=== PATIENT | female | born 1990 | race Caucasian/White ===

== ENCOUNTER → 2016-08-07 | Outpatient (CLI) | payer OTHER ==
[~2016-08-07] MED LIST: /OMEP10CA OR; ACET50TA PO; FERR325T3 PO; FLINTSTONES PO; IBUP-1114 PO; IBUP80TA PO; VITAPRTA PO
[2016-08-07 16:59] LABS: ALBUMIN 3.2 GM/DL (3.2-5.2); ALKALINE PHOSPHATASE 83 U/L (45-117); ALT/SGPT 29 U/L (12-78); ANION GAP 6 MEQ/L (8-16); AST/SGOT 18 U/L (15-37); BILIRUBIN,TOTAL 0.1 MG/DL (0.2-1.0); BLOOD UREA NITROGEN 11 MG/DL (7-18); CALCIUM LEVEL 8.4 MG/DL (8.5-10.1); CARBON DIOXIDE LEVEL 28 MEQ/L (21-32); CHLORIDE LEVEL 108 MEQ/L (98-107); CHOLESTEROL LEVEL 149 MG/DL (<200); CREATININE FOR GFR 0.68 MG/DL (0.55-1.02); GLOMERULAR FILTRATION RATE > 60.0 (>60); GLUCOSE, FASTING 86 MG/DL (70-105); MAGNESIUM LEVEL 1.9 MG/DL (1.8-2.4); POTASSIUM SERUM 4.2 MEQ/L (3.5-5.1); SODIUM LEVEL 142 MEQ/L (136-145); TOTAL PROTEIN 6.4 GM/DL (6.4-8.2); TRIGLYCERIDES LEVEL 364 MG/DL (<150)
[2016-08-07 19:02] LABS: MEAN CORPUSCULAR HEMOGLOBIN 28.1 pg (27.0-33.0); MEAN CORPUSCULAR HGB CONC 32.4 g/dl (32.0-36.5); MEAN CORPUSCULAR VOLUME 86.8 fl (80.0-96.0); RED CELL DISTRIBUTION WIDTH 14.4 % (11.5-14.5); WHITE BLOOD COUNT 7.8 K/mm3 (4.0-10.0)
== END ==
LOC: M SMT 12:57
PROVIDERS: ATTEND Nurse Practitioner Family
DX: E66.01 Morbid (severe) obesity due to excess calories (principal); R19.7 Diarrhea, unspecified; G44.89 Other headache syndrome; F41.1 Generalized anxiety disorder; Z13.220 Encounter for screening for lipoid disorders

== ENCOUNTER → 2016-08-28 | Outpatient (REF) | payer OTHER | LOC: M LAB REF 17:45 | PROVIDERS: ATTEND Advanced Practice Midwife | DX: Z12.4 Encounter for screening for malignant neoplasm of cervix (principal) ==

== ENCOUNTER 2016-10-10 10:56 | Emergency (ER) | payer OTHER ==
[~2016-10-10] VITALS: Ht 162.6 cm; Wt 106.4 kg
[2016-10-10 11:41] LABS: BASO # 0.1 K/mm3 (0.0-0.2); BASO % 0.7 % (0.0-1.0); EOS # 0.1 K/mm3 (0.0-0.50); EOS % 1.2 % (0.0-3.0); LARGE UNSTAINED CELL # 0.1 K/mm3 (0.0-0.4); LARGE UNSTAINED CELL % 1.3 % (0.0-4.0); LYMPH % 25.6 % (24.0-44.0); MEAN CORPUSCULAR HEMOGLOBIN 26.8 pg (27.0-33.0); MEAN CORPUSCULAR HGB CONC 32.2 g/dl (32.0-36.5); MEAN CORPUSCULAR VOLUME 83.4 fl (80.0-96.0); MONO # 0.4 K/mm3 (0.0-0.8); MONO % 5.5 % (0.0-5.0); NEUTROPHILS # 5.1 K/mm3 (1.8-7.7); NEUTROPHILS % 65.6 % (36.0-66.0); PLATELET COUNT, AUTOMATED 284 k/mm3 (150-450); RED CELL DISTRIBUTION WIDTH 14.8 % (11.5-14.5); WHITE BLOOD COUNT 7.7 K/mm3 (4.0-10.0)
[2016-10-10 12:09] LABS: ANION GAP 7 MEQ/L (8-16); BLOOD UREA NITROGEN 11 MG/DL (7-18); CALCIUM LEVEL 8.7 MG/DL (8.5-10.1); CARBON DIOXIDE LEVEL 26 MEQ/L (21-32); CHLORIDE LEVEL 107 MEQ/L (98-107); CREATININE FOR GFR 0.74 MG/DL (0.55-1.02); GLOMERULAR FILTRATION RATE > 60.0 (>60); GLUCOSE, FASTING 104 MG/DL (70-105); HCG, SERUM QUANTITATIVE 27 MIU/ML; POTASSIUM SERUM 4.3 MEQ/L (3.5-5.1); SODIUM LEVEL 140 MEQ/L (136-145)
--- NOTE | 2016-10-10 12:40 | REP ---
Obstetric ultrasound, first trimester for right lower quadrant abdominal pain. The patient states she thinks he has approximate 3 weeks gestational age. The study is performed with transabdominal, endovaginal and Doppler ultrasound assessment. The bladder is poorly distended. There is no identifiable intrauterine gestational sac. This is nonspecific and could represent an early intrauterine gestation not yet visible ultrasonographically, spontaneous or ectopic gestation. Follow-up is recommended. The ovaries are normal size. The right ovary measures 5.1 x 3.9 x 4.2 cm. Left ovary measures 3.2 x 2.2 x 2.4 cm. There is an involuting 1.7 cm cyst in the right ovary. There is vascular flow in both ovaries with the Doppler resistive index of the intraparenchymal arteries of the right ovary measuring 0.61 and left ovary 0.66. Impression: No identifiable intrauterine gestation. This is nonspecific and could represent early gestation not yet visible, spontaneous or ectopic gestation. Follow-up is recommended. Signed by Andrew Ellsworth MD 10/10/2016 12:31 P
[2016-10-10 13:14] VITALS: BP 146/86
== END 2016-10-10 13:27 | disposition home or self-care (01) ==
LOC: M ED 10:56
DX: R10.2 Pelvic and perineal pain (principal); F17.210 Nicotine dependence, cigarettes, uncomplicated

== ENCOUNTER → 2016-10-12 | Outpatient (CLI) | payer OTHER | LOC: M LAB 11:42 | PROVIDERS: ATTEND Emergency Medicine | DX: O20.0 Threatened abortion (principal); Z3A.00 Weeks of gestation of pregnancy not specified ==

== ENCOUNTER → 2016-10-19 | Outpatient (CLI) | payer OTHER ==
[2016-10-19 17:23] LABS: BASO % 0.5 % (0.0-1.0); EOS # 0.1 K/mm3 (0.0-0.50); EOS % 1.5 % (0.0-3.0); LARGE UNSTAINED CELL # 0.2 K/mm3 (0.0-0.4); LARGE UNSTAINED CELL % 1.9 % (0.0-4.0); LYMPH # 2.3 K/mm3 (1.5-6.5); LYMPH % 26.8 % (24.0-44.0); MEAN CORPUSCULAR HEMOGLOBIN 26.8 pg (27.0-33.0); MEAN CORPUSCULAR HGB CONC 32.2 g/dl (32.0-36.5); MONO # 0.4 K/mm3 (0.0-0.8); MONO % 5.1 % (0.0-5.0); NEUTROPHILS # 5.6 K/mm3 (1.8-7.7); NEUTROPHILS % 64.3 % (36.0-66.0); PLATELET COUNT, AUTOMATED 315 k/mm3 (150-450); RED CELL DISTRIBUTION WIDTH 15.4 % (11.5-14.5); WHITE BLOOD COUNT 8.7 K/mm3 (4.0-10.0)
[2016-10-20 11:03] LABS: HBsAg Prenatal NEGATIVE (NEGATIVE)
== END ==
LOC: M SMT 14:58
PROVIDERS: ATTEND Specialist
DX: Z34.81 Encounter for supervision of other normal pregnancy, first trimester (principal)

== ENCOUNTER → 2017-01-22 | Outpatient (CLI) | payer OTHER ==
--- NOTE | 2017-01-22 11:21 | REP ---
Clinical: Anatomical evaluation. Comparison: 10/10/2016 . Findings: Examination demonstrates a single live intrauterine in cephalic presentation. motion is identified by technologist. Placenta is noted posteriorly and grade zero without evidence for placenta previa or abruption. Amniotic fluid volume is normal. Cervix measures 4.4 cm in length and appears closed. No evidence for nuchal cord. Gestational age by LMP 18 weeks 3 days with JEANNA 06/22/2017 . Gestational age by current measurements 19 weeks 1 day with JEANNA 06/17/2017 . FHR equals 147 beats per minute. BPD 4.4 cm 19 weeks 1 day HC 15.6 cm 18 weeks 4 days AC 14.8 cm 20 weeks 1 day FL 3.0 cm 19 weeks 3 days HL 2.9 cm 19 weeks 2 days HC/AC ratio 1.06 Estimated weight 302 grams ( 96 percentile based on age by LMP ). Anatomical assessment demonstrates normal structures including cranium, choroid plexus, cavum, cerebellum/posterior fossa, facial features, lungs, four-chamber heart/ventricular outflow tracts, diaphragm, stomach, cord insertion/three-vessel cord, kidneys/bladder, spine, and extremities. Impression: Single live intrauterine in cephalic presentation demonstrating appropriate interval growth. Anatomical assessment is complete and normal. No gross abnormalities are identified. Signed by Adonis Willis MD 01/22/2017 11:13 A
== END ==
LOC: M RAD 10:04
PROVIDERS: ATTEND Obstetrics & Gynecology
DX: Z34.82 Encounter for supervision of other normal pregnancy, second trimester (principal); Z3A.18 18 weeks gestation of pregnancy

== ENCOUNTER → 2017-02-06 | Outpatient (CLI) | payer OTHER ==
[2017-02-06 20:10] LABS: ALBUMIN 2.8 GM/DL (3.2-5.2); ALBUMIN/GLOBULIN RATIO 0.78 (1.00-1.93); ALKALINE PHOSPHATASE 70 U/L (45-117); ALT/SGPT 14 U/L (12-78); ANION GAP 8 MEQ/L (8-16); AST/SGOT 9 U/L (7-37); BILIRUBIN,TOTAL 0.1 MG/DL (0.2-1.0); BLOOD UREA NITROGEN 10 MG/DL (7-18); CALCIUM LEVEL 8.8 MG/DL (8.5-10.1); CARBON DIOXIDE LEVEL 26 MEQ/L (21-32); CHLORIDE LEVEL 106 MEQ/L (98-107); CREATININE FOR GFR 0.46 MG/DL (0.55-1.02); GLOMERULAR FILTRATION RATE > 60.0 (>60); GLUCOSE, FASTING 61 MG/DL (70-105); POTASSIUM SERUM 4.3 MEQ/L (3.5-5.1); SODIUM LEVEL 140 MEQ/L (136-145); TOTAL PROTEIN 6.4 GM/DL (6.4-8.2)
== END ==
LOC: M SMT 12:11
PROVIDERS: ATTEND Obstetrics & Gynecology
DX: R21 Rash and other nonspecific skin eruption (principal)

== ENCOUNTER → 2017-04-09 | Outpatient (CLI) | payer OTHER ==
[2017-04-09 17:47] LABS: HEMATOCRIT 30.8 % (36.0-47.0); HEMOGLOBIN 9.5 g/dl (12.0-16.0); MEAN CORPUSCULAR HEMOGLOBIN 26.2 pg (27.0-33.0); MEAN CORPUSCULAR HGB CONC 30.8 g/dl (32.0-36.5); MEAN CORPUSCULAR VOLUME 85.1 fl (80.0-96.0); PLATELET COUNT, AUTOMATED 290 10^3/uL (150-450); RED BLOOD COUNT 3.62 10^6/uL (4.00-5.40); RED CELL DISTRIBUTION WIDTH 14.8 % (11.5-14.5); WHITE BLOOD COUNT 9.9 10^3/uL (4.0-10.0)
[2017-04-09 18:14] LABS: GLUCOSE CHALLENGE TEST 1 HOUR 95 MG/DL (LESS THAN 140)
== END ==
LOC: M SMT 13:10
DX: Z34.82 Encounter for supervision of other normal pregnancy, second trimester (principal)
CPT/HCPCS: 82950

== ENCOUNTER → 2017-05-22 | Outpatient (REF) | payer OTHER | LOC: M LAB REF 13:14 | DX: Z34.83 Encounter for supervision of other normal pregnancy, third trimester (principal) ==

== ENCOUNTER 2017-11-22 10:43 | Emergency (ER) | payer OTHER | END 2017-11-22 12:59 | disposition home or self-care (01) | LOC: M ED 10:43 | DX: S69.91XA Unspecified injury of right wrist, hand and finger(s), initial encounter (principal); W20.8XXA Other cause of strike by thrown, projected or falling object, initial encounter; Y92.89 Other specified places as the place of occurrence of the external cause; I10 Essential (primary) hypertension; F41.9 Anxiety disorder, unspecified; F17.200 Nicotine dependence, unspecified, uncomplicated | CPT/HCPCS: 73110 ==

== ENCOUNTER → 2017-11-26 | Outpatient (REF) | payer OTHER ==
[2017-11-26 18:26] LABS: BASO % 0.4 % (0.0-1.0); EOS # 0.2 10^3/uL (0.0-0.50); EOS % 2.4 % (0.0-3.0); HEMATOCRIT 36.7 % (36.0-47.0); HEMOGLOBIN 11.2 g/dl (12.0-15.5); IMMATURE GRANULOCYTE % 0.4 % (0-3.0); LYMPH # 2.6 10^3/uL (1.5-6.5); LYMPH % 32.5 % (24.0-44.0); MEAN CORPUSCULAR HEMOGLOBIN 25.5 pg (27.0-33.0); MEAN CORPUSCULAR HGB CONC 30.5 g/dl (32.0-36.5); MEAN CORPUSCULAR VOLUME 83.4 fl (80.0-96.0); MONO # 0.6 10^3/uL (0.0-0.8); MONO % 7.4 % (0.0-5.0); NEUTROPHILS # 4.6 10^3/uL (1.8-7.7); NEUTROPHILS % 56.9 % (36.0-66.0); PLATELET COUNT, AUTOMATED 303 10^3/uL (150-450); RED CELL DISTRIBUTION WIDTH 16.4 % (11.5-14.5)
[2017-11-26 18:39] LABS: CONTROL LINE UCG INT CTR LINE PRESENT; URINE PREG TEST NEGATIVE (NEGATIVE)
[2017-11-26 18:56] LABS: ALBUMIN 3.4 GM/DL (3.2-5.2); ALBUMIN/GLOBULIN RATIO 0.94 (1.00-1.93); ALKALINE PHOSPHATASE 96 U/L (45-117); ALT/SGPT 17 U/L (12-78); ANION GAP 5 MEQ/L (8-16); AST/SGOT 14 U/L (7-37); BILIRUBIN,TOTAL 0.2 MG/DL (0.2-1.0); BLOOD UREA NITROGEN 15 MG/DL (7-18); CALCIUM LEVEL 8.5 MG/DL (8.5-10.1); CARBON DIOXIDE LEVEL 29 MEQ/L (21-32); CHLORIDE LEVEL 107 MEQ/L (98-107); CREATININE FOR GFR 0.68 MG/DL (0.55-1.30); FREE THYROXINE INDEX 2.8 % (1.3-4.8); GLOMERULAR FILTRATION RATE > 60.0 (>60); GLUCOSE, FASTING 81 MG/DL (70-100); POTASSIUM SERUM 4.5 MEQ/L (3.5-5.1); SODIUM LEVEL 141 MEQ/L (136-145); T UPTAKE 32 % (30-39); THYROXINE (T4) 8.7 UG/DL (4.5-12.0)
[2017-11-26 19:03] LABS: APPEARANCE, URINE HAZY (CLEAR); BACTERIA, URINE AUTO NEGATIVE (NEGATIVE); BILIRUBIN, URINE AUTO NEGATIVE (NEGATIVE); BLOOD, URINE BLOOD 1+ (NEGATIVE); COLOR, URINE YELLOW (YELLOW); GLUCOSE, URINE (UA) AUTO NEGATIVE (NEGATIVE); KETONE, URINE AUTO NEGATIVE (NEGATIVE); LEUKOCYTE ESTERASE, URINE AUTO NEGATIVE (NEGATIVE); MUCUS, URINE SMALL (NEGATIVE); NITRITE, URINE AUTO NEGATIVE (NEGATIVE); PROTEIN, URINE AUTO NEGATIVE (NEGATIVE); RBC, URINE AUTO 0 /HPF (0-3); SPECIFIC GRAVITY URINE AUTO 1.023 (1.002-1.035); SQUAMOUS EPITHELIAL CELL UR AU 1 /HPF (0-6); UROBILINOGEN, URINE AUTO 0.2 mg/dL (0.0-2.0); WBC, URINE AUTO 0 /HPF (0-3)
[2017-11-26 19:50] LABS: TOTAL 25(OH) VITAMIN D 18.2 NG/ML (30.0-100.0)
== END ==
LOC: M LAB REF 17:19
DX: F41.1 Generalized anxiety disorder (principal)

== ENCOUNTER → 2018-07-15 | Outpatient (CLI) | payer OTHER ==
[~2018-07-15] MED LIST changes: -ACET50TA PO; +MAPA500T17 PO; +MAPA500T2 PO; +MOTR200T44 PO; +OXYC1TAB23 PO; +PRENTAB9 PO
--- NOTE | 2018-07-18 12:21 | SLEEPHOME ---
DATE OF PROCEDURE: 07/15/2018 ORDERED BY: Dr. Easley Diagnostic home sleep testing was performed due to concern for the obstructive sleep apnea syndrome in this patient who is engaged in an evaluation for weight loss surgery. For testing a nocturnal T3 respiratory monitoring device was used. Continuous record was made of pulse, oxygen saturation, airflow, chest and abdominal strain and body position. 9 hours and 59 minutes of data were reviewed; 5 hours and 48 minutes were marked as time in bed. During the interval marked time in bed, there were only 11 respiratory events identified of 10 seconds in duration or greater for a respiratory event index of 1.9. Baseline pulse rate 90 beats per minute. Pulse rate ranged 55-111. Baseline saturation 94%. Saturations fell to 91%. Testing was performed in both supine and nonsupine positions. IMPRESSION: Normal diagnostic home sleep testing with occasional respiratory events and no significant oxygen desaturation.
== END ==
LOC: M SLEEP HO 12:37
PROVIDERS: ATTEND Nurse Practitioner Adult Health
DX: G47.30 Sleep apnea, unspecified (principal); R06.83 Snoring; R40.0 Somnolence

== ENCOUNTER → 2018-09-06 | Outpatient (REF) | payer OTHER ==
[2018-09-06 15:30] LABS: APPEARANCE, URINE CLOUDY (CLEAR); BACTERIA, URINE AUTO NEGATIVE (NEGATIVE); BILIRUBIN, URINE AUTO 1+ (NEGATIVE); BLOOD, URINE BLOOD NEGATIVE (NEGATIVE); COLOR, URINE AMBER (YELLOW); GLUCOSE, URINE (UA) AUTO NEGATIVE (NEGATIVE); KETONE, URINE AUTO 2+ mg/dL (NEGATIVE); LEUKOCYTE ESTERASE, URINE AUTO TRACE (NEGATIVE); MUCUS, URINE LARGE (NEGATIVE); NITRITE, URINE AUTO NEGATIVE (NEGATIVE); PROTEIN, URINE AUTO 1+ mg/dL (NEGATIVE); RBC, URINE AUTO 1 /HPF (0-3); SPECIFIC GRAVITY URINE AUTO 1.027 (1.002-1.035); SQUAMOUS EPITHELIAL CELL UR AU 20 /HPF (0-6); WBC, URINE AUTO 7 /HPF (0-3)
== END ==
LOC: M LAB REF 14:38
PROVIDERS: ATTEND Physician Assistant Surgical
DX: R30.0 Dysuria (principal)

== ENCOUNTER 2018-11-09 23:20 | Emergency (ER) | payer OTHER ==
[~2018-11-09] VITALS: Ht 162.6 cm; Wt 77.0 kg
[2018-11-09] MEDS ORDERED: OMEP-221 (23:29)
[2018-11-09] MEDS ORDERED: NS 1,000 ML IV ONE (23:45)
[2018-11-10 00:20] LABS: HCG, SERUM QUALITATIVE NEGATIVE (NEGATIVE)
[2018-11-10 00:29] LABS: ALBUMIN 3.5 GM/DL (3.2-5.2); ALT/SGPT 19 U/L (12-78); BILIRUBIN,TOTAL 0.2 MG/DL (0.2-1.0); BLOOD UREA NITROGEN 12 MG/DL (7-18); CALCIUM LEVEL 8.8 MG/DL (8.5-10.1); CARBON DIOXIDE LEVEL 25 MEQ/L (21-32); CHLORIDE LEVEL 109 MEQ/L (98-107); CREATININE FOR GFR 0.73 MG/DL (0.55-1.30); GLOMERULAR FILTRATION RATE > 60.0 (>60); GLUCOSE, FASTING 91 MG/DL (70-100); LIPASE 142 U/L (73-393); POTASSIUM SERUM 3.5 MEQ/L (3.5-5.1); SODIUM LEVEL 142 MEQ/L (136-145); TOTAL PROTEIN 6.8 GM/DL (6.4-8.2)
[2018-11-10 00:47] LABS: BASO # 0.1 10^3/uL (0.0-0.2); EOS # 0.1 10^3/uL (0.0-0.5); EOS % 1.2 % (0.0-3.0); HEMATOCRIT 36.3 % (36.0-47.0); HEMOGLOBIN 11.5 g/dl (12.0-15.5); LYMPH # 1.5 10^3/uL (1.5-5.0); LYMPH % 30.4 % (24.0-44.0); MEAN CORPUSCULAR HEMOGLOBIN 27.2 pg (27.0-33.0); MEAN CORPUSCULAR HGB CONC 31.7 g/dl (32.0-36.5); MEAN CORPUSCULAR VOLUME 85.8 fl (80.0-96.0); MONO # 0.5 10^3/uL (0.0-0.8); MONO % 11.2 % (0.0-5.0); NEUTROPHILS # 2.7 10^3/uL (1.5-8.5); NEUTROPHILS % 55.8 % (36.0-66.0); PLATELET COUNT, AUTOMATED 221 10^3/uL (150-450); RED BLOOD COUNT 4.23 10^6/uL (4.00-5.40); WHITE BLOOD COUNT 4.8 10^3/uL (4.0-10.0)
[2018-11-10] MEDS ORDERED: METOCLOPRAMIDE INJ 10MG/2ML VIAL (J2765) IV ONE (01:00)
[2018-11-10] MEDS: GASTROGRAFIN SOLUTION 30ML PO SCH ×2 (01:33→01:57)
[2018-11-10] MEDS ORDERED: ISOVUE-370 76% 100ML VIAL (Q9967) As Ordered ONE (02:36)
--- NOTE | 2018-11-10 04:19 | REPVR ---
EXAM: CT Abdomen and Pelvis With Contrast EXAM DATE/TIME: 11/10/2018 2:56 AM CLINICAL HISTORY: 27 years old, female; Abdominal pain; Localized; Lower; Additional info: Lower abd pain, nausea with po, 2mo p/o gastric bypass TECHNIQUE: Imaging protocol: Computed tomography of the abdomen and pelvis with intravenous contrast. Radiation optimization: All CT scans at this facility use at least one of these dose optimization techniques: automated exposure control; mA and/or kV adjustment per patient size (includes targeted exams where dose is matched to clinical indication); or iterative reconstruction. Contrast material: ISOVUE 100; Contrast volume: 100 ml; Contrast route: IV; COMPARISON: US PELVIC NON-OB COMPLETE 11/08/2014 9:35 PM FINDINGS: Lungs: 2 adjacent 2 MM nodules right lower lung. Mediastinum: Hiatal hernia. Liver: Normal. No mass. Gallbladder and bile ducts: Normal. No calcified stones. No ductal dilation. Pancreas: Normal. No ductal dilation. Spleen: Mild splenomegaly measuring 13.3 CM. 0.6 CM hypodensity within the upper spleen is indeterminate. Adrenals: 2.7 CM left adrenal gland nodule. Kidneys and ureters: Normal. No hydronephrosis. Stomach and bowel: Postoperative changes at the level of the stomach. Additional surgical anastomosis within small bowel segments central abdomen. Mild contrast and fluid expansion of small bowel. Appendix: No evidence of appendicitis. Intraperitoneal space: Small amount of free fluid in the pelvis is nonspecific and could be physiologic. Vasculature: Unremarkable. No abdominal aortic aneurysm. Lymph nodes: Unremarkable. No enlarged lymph nodes. Several small mesenteric abdominal lymph nodes. Bladder: Unremarkable as visualized. Reproductive: Likely vaginal tampon noted. Bones/joints: Unremarkable. No acute fracture. Soft tissues: Unremarkable. IMPRESSION: 1. Operative changes at the level of the stomach and small bowel segments centrally. 2. Nodule left adrenal gland.Recommend adrenal CT. (Shaw-Valderrama W, ACR White Paper, 2017) 3. Mild reactive small bowel ileus. 4. Minimal free fluid in the pelvis. 5. Indeterminate subcentimeter hypodensity within the spleen. Lesional size too small for definitive assessment. 6. Splenomegaly. Electronically signed by: Daisy Rodriguez On 11/10/2018 04:18:47 AM
[2018-11-10] MEDS ORDERED: NS 1,000 ML IV ONE (05:15)
[2018-11-10 05:55] VITALS: BP 111/56
--- NOTE | 2018-11-10 12:43 | ED PDOC ---
Post-Departure Follow-Up marco gordon faxed formalr eport of ct abd/p for fu Augie Naik MD Nov 10, 2018 12:43
== END 2018-11-10 06:22 | disposition home or self-care (01) ==
LOC: M ED 23:20
DX: R10.9 Unspecified abdominal pain (principal); I10 Essential (primary) hypertension; F17.200 Nicotine dependence, unspecified, uncomplicated; Z79.899 Other long term (current) drug therapy
CPT/HCPCS: 74177; 80053; 81001; 83690; 84703; 85025; 96361; 96374; 99284; J2765; Q9963; Q9967

== ENCOUNTER → 2018-11-28 | Outpatient (CLI) | payer OTHER ==
[~2018-11-28] MED LIST changes: +OMEP-221
--- NOTE | 2018-11-28 14:32 | REP ---
Abdominal right upper quadrant ultrasound: The studies performed for abdominal pain. Comparison is the abdomen/pelvis CT dated 11/10/2018. There are multiple small gallbladder calculi layering along the gallbladder dependent wall. There is no gallbladder wall thickening or pericholecystic fluid. There is no intrahepatic or extrahepatic biliary duct dilatation. The common biliary duct measures 3.8 mm in diameter. The visualized areas of the pancreas are unremarkable. The right kidney measures 11.2 x 5.2 x 4.0 cm and is normal size. There is no right renal calculus or hydronephrosis. There are no solid or cystic masses. There is no right upper quadrant free fluid. Impression: Cholelithiasis. There is no ultrasound evidence of acute cholecystitis. There is no biliary duct dilatation. Portions of the pancreas are obscured by bowel gas. Electronically Signed by Anderw Ellsworth MD 11/28/2018 02:24 P
== END ==
LOC: M RAD 09:06
PROVIDERS: ATTEND Surgery
DX: R10.9 Unspecified abdominal pain (principal); K80.20 Calculus of gallbladder without cholecystitis without obstruction

== ENCOUNTER 2019-02-12 01:36 | Emergency (ER) | payer OTHER ==
[~2019-02-12] VITALS: Ht 162.6 cm; Wt 65.0 kg
[2019-02-12 01:58] LABS: BASO # 0.1 10^3/uL (0.0-0.2); BASO % 0.4 % (0.0-1.0); EOS # 0.2 10^3/uL (0.0-0.5); EOS % 1.3 % (0.0-3.0); HEMOGLOBIN 11.6 g/dl (12.0-15.5); LYMPH # 2.7 10^3/uL (1.5-5.0); LYMPH % 21.5 % (24.0-44.0); MEAN CORPUSCULAR HGB CONC 30.5 g/dl (32.0-36.5); MEAN CORPUSCULAR VOLUME 88.4 fl (80.0-96.0); MONO # 0.6 10^3/uL (0.0-0.8); MONO % 4.9 % (0.0-5.0); NEUTROPHILS # 8.9 10^3/uL (1.5-8.5); NEUTROPHILS % 71.6 % (36.0-66.0); PLATELET COUNT, AUTOMATED 304 10^3/uL (150-450); WHITE BLOOD COUNT 12.4 10^3/uL (4.0-10.0)
[2019-02-12] MEDS ORDERED: NS 1,000 ML IV ONE (02:00)
[2019-02-12 02:29] LABS: ALBUMIN 3.9 GM/DL (3.2-5.2); BILIRUBIN,DIRECT 0.1 MG/DL (0.0-0.2); BILIRUBIN,TOTAL 0.3 MG/DL (0.2-1.0); TOTAL PROTEIN 7.2 GM/DL (6.4-8.2)
[2019-02-12] MEDS ORDERED: MORPHINE 4 MG/ML 1ML VIAL/SYRINGE (J2270) IV PRN (02:45)
[2019-02-12] MEDS ORDERED: ONDANSETRON 4MG/2ML VIAL (J2405) IV ONE (02:45)
[2019-02-12] MEDS: GASTROGRAFIN SOLUTION 30ML PO SCH ×2 (03:04→03:56)
[2019-02-12] MEDS ORDERED: ISOVUE-370 76% 100ML VIAL (Q9967) As Ordered ONE (04:31)
--- NOTE | 2019-02-12 05:02 | REPVR ---
PROCEDURE INFORMATION: Exam: CT Abdomen And Pelvis With Contrast Exam date and time: 02/12/2019 2:38 AM Age: 28 years old Clinical history: Abdominal pain; Localized; Right upper quadrant (ruq); Additional info: Ruq abd pain, HX of gastric bypass TECHNIQUE: Imaging protocol: Computed tomography of the abdomen and pelvis with intravenous contrast. Radiation optimization: All CT scans at this facility use at least one of these dose optimization techniques: automated exposure control; mA and/or kV adjustment per patient size (includes targeted exams where dose is matched to clinical indication); or iterative reconstruction. Contrast material: ISO; Contrast volume: 100 ml; Contrast route: AC; Other contrast: Route: Oral, Material: gastro, Volume: 600; COMPARISON: CT ABD/PEL W/IV ORAL CONTRAS 11/10/2018 2:54 AM FINDINGS: Liver: The liver at mid clavicular line measures 17.8 cm. Gallbladder and bile ducts: Normal. No calcified stones. No ductal dilation. Pancreas: Normal. No ductal dilation. Spleen: Ovoid nodule medial to the spleen thought to reflect an accessory spleen rather than adrenal nodule having a similar enhancement pattern to the spleen. There is also another rounded nodule anterior to the spleen consistent with an additional accessory spleen measuring 2.7 cm. Adrenals: Normal. No mass. Kidneys and ureters: Normal. No hydronephrosis. Stomach and bowel: Status post gastric bypass with mid abdominal Inga-en-Y. The bypassed stomach is collapsed. Appendix: A normal appendix is seen with appendicolith. Intraperitoneal space: Unremarkable. No free air. No significant fluid collection. Vasculature: Unremarkable. No abdominal aortic aneurysm. Lymph nodes: Unremarkable. No enlarged lymph nodes. Bladder: There is bladder wall thickening, however, the bladder is nondistended and is nonspecific. Reproductive: Unremarkable as visualized. Bones/joints: Unremarkable. No acute fracture. Soft tissues: Unremarkable. IMPRESSION: 1. Status post gastric bypass with collapse of the bypassed stomach. 2. Mild hepatomegaly. 3. Otherwise negative CT abdomen/pelvis with little change from 11/10/2018. Electronically signed by: Timo Nguyễn On 02/12/2019 05:02:00 AM
--- NOTE | 2019-02-12 06:50 | REPVR ---
PROCEDURE INFORMATION: Exam: US Abdomen Limited, Right Upper Quadrant Exam date and time: 02/12/2019 6:31 AM Age: 28 years old Clinical history: Abdominal pain; Additional info: Ruq abd pain TECHNIQUE: Imaging protocol: Real-time ultrasound of the abdomen with image documentation. Examination was focused on the right upper quadrant. COMPARISON: GALLBLADDER US 11/28/2018 9:49 AM FINDINGS: Liver: The liver demonstrates no focal defects. Gallbladder: Multiple small gallstones are noted in the gallbladder. There is no gallbladder wall thickening measuring 2 mm. Common bile duct: The CBD measures 4 mm. Pancreas: The pancreas is obscured by gas shadowing. Right kidney: The right kidney demonstrates no hydronephrosis and measures 11.3 cm. IMPRESSION: 1. Cholelithiasis with multiple small gallstones. No gallbladder wall thickening. 2. Otherwise negative right upper quadrant sonogram. Electronically signed by: Timo Nguyễn On 02/12/2019 06:50:37 AM
[2019-02-12] MEDS ORDERED: LEVS0.124 SL (07:49)
[2019-02-12] MEDS ORDERED: PERC5TAB12 PO (07:49)
[2019-02-12 08:00] VITALS: BP 118/70
[2019-02-12] MEDS ORDERED: PERCOCET 5MG/325MG TAB PO ONE (08:00)
[2019-02-12] MEDS ORDERED: HYOSCYAMINE SULFATE 0.125 MG SUBL TABLET PO ONE (08:00)
== END 2019-02-12 08:10 | disposition home or self-care (01) ==
LOC: M ED 01:36
DX: K80.70 Calculus of gallbladder and bile duct without cholecystitis without obstruction (principal); Z98.84 Bariatric surgery status; F17.200 Nicotine dependence, unspecified, uncomplicated; Z79.899 Other long term (current) drug therapy
CPT/HCPCS: 74177; 76705; 80047; 80076; 81001; 83690; 84702; 85025; 93041; 99284; J2270; J2405; Q9967

== ENCOUNTER 2019-05-15 17:25 | Emergency (ER) | payer OTHER ==
[~2019-05-15] VITALS: Ht 162.6 cm; Wt 61.2 kg
[~2019-05-15 17:25] MED LIST changes: +LEVS0.124 SL; +PERC5TAB12 PO
[2019-05-15] MEDS ORDERED: [UNRECOGNIZED DRUG - OTHER] (18:13)
[2019-05-15] MEDS ORDERED: ALBUTEROL SULFATE 2.5 MG/0.5 ML INH NEB SOLN NEB ONE (19:45)
[2019-05-15] MEDS ORDERED: ACETAMINOPHEN 325 MG TAB PO ONE (19:45)
[2019-05-15] MEDS ORDERED: BENZONATATE 100 MG CAP PO ONE (19:45)
[2019-05-15 19:48] LABS: INFLUENZA A AMPLIFICATION NEGATIVE (NEGATIVE); INFLUENZA B AMPLIFICATION NEGATIVE (NEGATIVE)
[2019-05-15 19:59] LABS: BASO # 0.1 10^3/uL (0.0-0.2); BASO % 0.6 % (0.0-1.0); EOS # 0.2 10^3/uL (0.0-0.5); EOS % 2.1 % (0.0-3.0); HEMATOCRIT 37.8 % (36.0-47.0); HEMOGLOBIN 11.6 g/dl (12.0-15.5); LYMPH # 1.7 10^3/uL (1.5-5.0); LYMPH % 21.6 % (24.0-44.0); MEAN CORPUSCULAR HEMOGLOBIN 25.6 pg (27.0-33.0); MEAN CORPUSCULAR HGB CONC 30.7 g/dl (32.0-36.5); MEAN CORPUSCULAR VOLUME 83.3 fl (80.0-96.0); MONO # 0.7 10^3/uL (0.0-0.8); NEUTROPHILS # 5.2 10^3/uL (1.5-8.5); NEUTROPHILS % 66.4 % (36.0-66.0); PLATELET COUNT, AUTOMATED 306 10^3/uL (150-450); RED BLOOD COUNT 4.54 10^6/uL (4.00-5.40); WHITE BLOOD COUNT 7.8 10^3/uL (4.0-10.0)
[2019-05-15] MEDS ORDERED: TESS100C PO (21:16)
[2019-05-15] MEDS ORDERED: PROAAER10 INH (21:16)
[2019-05-15] MEDS ORDERED: MUCI1TAB18 PO (21:16)
[2019-05-15 21:36] VITALS: BP 121/69
--- NOTE | 2019-05-16 03:13 | REP ---
Clinical: Cough and chills . Comparison: 12/09/2014 . Technique: PA and lateral. Findings: The mediastinum and cardiac silhouette are normal. The lung kwong are clear and without acute consolidation, effusion, or pneumothorax. The skeletal structures are intact and normal. Impression: 1. No acute cardiopulmonary process. Electronically Signed by Adonis Willis MD 05/16/2019 03:06 A
== END 2019-05-15 21:38 | disposition home or self-care (01) ==
LOC: M ED 17:25
DX: R05 Cough (principal); R51 Headache; R09.81 Nasal congestion; N39.0 Urinary tract infection, site not specified; K21.9 Gastro-esophageal reflux disease without esophagitis; Z98.84 Bariatric surgery status; F17.200 Nicotine dependence, unspecified, uncomplicated; Z79.899 Other long term (current) drug therapy

== ENCOUNTER → 2019-08-01 | Outpatient (REF) | payer OTHER ==
[~2019-08-01] MED LIST changes: +MUCI1TAB18 PO; +PROAAER10 INH; +TESS100C PO; +[UNRECOGNIZED DRUG - OTHER]
== END ==
LOC: M LAB REF 15:57
PROVIDERS: ATTEND Family Medicine
DX: F31.9 Bipolar disorder, unspecified (principal)

== ENCOUNTER → 2019-08-08 | Outpatient (REF) | payer OTHER ==
[2019-08-08 19:23] LABS: URINE PREG TEST NEGATIVE (NEGATIVE)
== END ==
LOC: M LAB REF 16:47
PROVIDERS: ATTEND Physician Assistant
DX: J02.9 Acute pharyngitis, unspecified (principal)

== ENCOUNTER → 2019-09-28 | Outpatient (REF) | payer OTHER | LOC: M LAB REF 11:35 | PROVIDERS: ATTEND Physician Assistant Medical | DX: Z20.828 Contact with and (suspected) exposure to other viral communicable diseases (principal) ==

== ENCOUNTER → 2020-03-24 | Outpatient (REF) | payer OTHER | LOC: M LAB 22:17 | PROVIDERS: ATTEND Physician Assistant | DX: R05 Cough (principal); R53.83 Other fatigue ==

== ENCOUNTER → 2020-06-15 | Outpatient (REF) | payer OTHER | LOC: M SFHCWAGY 16:54 | PROVIDERS: ATTEND Obstetrics & Gynecology | DX: R87.612 Low grade squamous intraepithelial lesion on cytologic smear of cervix (LGSIL) (principal) ==

== ENCOUNTER → 2020-07-07 | Outpatient (CLI) | payer OTHER | LOC: M LABSMTC 09:36 | PROVIDERS: ATTEND Anesthesiology | DX: Z01.812 Encounter for preprocedural laboratory examination (principal); Z20.822 Contact with and (suspected) exposure to COVID-19 ==

== ENCOUNTER 2020-07-12 06:17 | Day surgery (SDC) | payer OTHER ==
[~2020-07-12] VITALS: Ht 162.6 cm; Wt 60.7 kg
[~2020-07-12 06:17] MED LIST changes: +LR 1,000 ML IV ONE
[2020-07-12 06:43] LABS: HEMATOCRIT 27.7 % (36.0-47.0); HEMOGLOBIN 7.5 g/dl (12.0-15.5); MEAN CORPUSCULAR HEMOGLOBIN 18.8 pg (27.0-33.0); MEAN CORPUSCULAR HGB CONC 27.1 g/dl (32.0-36.5); MEAN CORPUSCULAR VOLUME 69.4 fl (80.0-96.0); PLATELET COUNT, AUTOMATED 408 10^3/uL (150-450); RED BLOOD COUNT 3.99 10^6/uL (4.00-5.40); WHITE BLOOD COUNT 6.9 10^3/uL (4.0-10.0)
[2020-07-12 06:55] LABS: HCG, SERUM QUALITATIVE NEGATIVE (NEGATIVE)
[2020-07-12] MEDS ORDERED: SILVER NITRATE APPLICATOR As Ordered ONE (07:14)
[2020-07-12] MEDS ORDERED: IODINE STRONG SOLN 15 ML BTL As Ordered ONE (07:14)
[2020-07-12] MEDS ORDERED: LIDOCAINE W/EPINEPHRINE 1% 20ML VIAL As Ordered ONE (07:15)
[2020-07-12] MEDS ORDERED: KETOROLAC 60MG 2ML VIAL As Ordered ONE (07:21)
[2020-07-12] MEDS ORDERED: propofoL 200 MG/20 ML VIAL As Ordered ONE (07:21)
[2020-07-12] MEDS ORDERED: MIDAZOLAM INJ 2MG/2ML VIAL (J2250 PER 1MG) As Ordered ONE (07:21)
[2020-07-12] MEDS ORDERED: fentaNYL 100 MCG/2 ML INJECTION (J3010) As Ordered ONE (07:21)
[2020-07-12] MEDS ORDERED: LIDOCAINE 2% 100MG/5ML SDV (FOR ANES.) As Ordered ONE (07:21)
--- NOTE | 2020-07-12 08:51 | ROOPDOC ---
[facility] Report Of Operation Report of Operation DATE OF OPERATION: 07/12/2020 PREOPERATIVE DIAGNOSIS:. 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 ANESTHESIA: Intravenous (IV) sedation with local anesthesia/paracervical block. SPECIMEN(S) SENT TO PATHOLOGY: Cervix with the squamocolumnar junction. Tagged at 12:00 with suture ESTIMATED BLOOD LOSS: 10-20 mL. FLUIDS PLACED: 1000 mL. DRAINS: In and out catheter, 20 mL. URINE OUTPUT: None. COMPLICATIONS: None. ANTIBIOTICS: None indicated. INTRAOPERATIVE FINDINGS: INDICATIONS: CIN3 at 12 o'clock and within endocervix. DESCRIPTION OF PROCEDURE: The patient was counseled and consented on the risks, benefits, indications, and alternatives of the procedure. Informed consent was obtained. She was taken to the operating room with an IV running in placed on the operating table and then dorsal supine position. Anesthesia was found to be adequate. She was placed in the high lithotomy position. She was prepared and draped in normal sterile fashion. Time-out was performed per protocol. The bladder was drained with sterile in and out catheter. A coated Graves speculum was placed into the vagina with good visualization of the cervix. The cervix was coated with acetic acid and the dysplasia was evident even without colposcopy. The size 20 mm x 12 mm loop was used to excise the cervix at the level of the squamocolumnar junction. This specimen was sent separately to pathology. The r emaining raw cervix was cauterized with a roller ball cautery. Excellent hemostasis was noted. Monsel solution was applied to ensure hemostasis. Paracervical block was performed for postoperative comfort. Ten mL of 1% Xylocaine with epinephrine used. Sponge, needle, and instrument counts were correct per protocol. The patient tolerated the entire procedure very well. She was transferred to the PACU in good and stable condition. ALONDRA LA DO July 12, 2020 08:51
[2020-07-12 10:00] VITALS: BP 105/49
== END 2020-07-12 10:00 | disposition home or self-care (01) ==
LOC: M SDC 06:17
PROVIDERS: ATTEND Obstetrics & Gynecology
DX: D06.9 Carcinoma in situ of cervix, unspecified (principal); I10 Essential (primary) hypertension; K44.9 Diaphragmatic hernia without obstruction or gangrene; K21.9 Gastro-esophageal reflux disease without esophagitis; F17.218 Nicotine dependence, cigarettes, with other nicotine-induced disorders; F32.9 Major depressive disorder, single episode, unspecified; F41.9 Anxiety disorder, unspecified
CPT/HCPCS: 36415; 57522; 84703; 85027; 86850; 86900; 86901; 88307; J1885; J2250; J3010

== ENCOUNTER → 2020-08-29 | Outpatient (CLI) | payer OTHER ==
[~2020-08-29] MED LIST changes: -LR 1,000 ML IV ONE
== END ==
LOC: M LABSMTC 08:55
PROVIDERS: ATTEND Anesthesiology
DX: Z01.812 Encounter for preprocedural laboratory examination (principal); Z20.822 Contact with and (suspected) exposure to COVID-19

== ENCOUNTER 2020-09-03 08:36 | Day surgery (SDC) | payer OTHER ==
[2020-09-03] VITALS (15 sets, daily range): BP systolic 98–118; BP diastolic 46–94
[~2020-09-03] VITALS: Ht 162.6 cm; Wt 60.7 kg
[~2020-09-03 08:36] MED LIST changes: +ACETAMINOPHEN 1000MG 100ML IV BTL (OFIRMEV) (J0131 PER 10MG) As Ordered ONE; +HYDROmorphone HCL 2 MG/ML 1ML VIAL (J1170) As Ordered ONE; +KETOROLAC 60MG 2ML VIAL As Ordered ONE; +LIDOCAINE 2% 100MG/5ML SDV (FOR ANES.) As Ordered ONE; +LR 1,000 ML IV ONE; +MIDAZOLAM INJ 2MG/2ML VIAL (J2250 PER 1MG) As Ordered ONE; +ONDANSETRON 4MG/2ML VIAL As Ordered ONE; +ROCURONIUM BROMIDE 50 MG/5 ML VIAL As Ordered ONE; +SUGAMMADEX SODIUM 500 MG/5 ML VIAL (BRIDION) As Ordered ONE; +ceFAZolin SOD 2 GM in IV 1 EA IV ONE; +dexameTHASONE 4 MG/ML 1ML VIAL (J1100 PER 1MG) As Ordered ONE; +fentaNYL 100 MCG/2 ML INJECTION (J3010) As Ordered ONE; +propofoL 200 MG/20 ML VIAL As Ordered ONE
[2020-09-03 08:58] LABS: HEMATOCRIT 26.6 % (36.0-47.0); HEMOGLOBIN 7.2 g/dl (12.0-15.5); MEAN CORPUSCULAR HEMOGLOBIN 18.4 pg (27.0-33.0); MEAN CORPUSCULAR HGB CONC 27.1 g/dl (32.0-36.5); PLATELET COUNT, AUTOMATED 336 10^3/uL (150-450); RED BLOOD COUNT 3.91 10^6/uL (4.00-5.40); WHITE BLOOD COUNT 5.5 10^3/uL (4.0-10.0)
[2020-09-03 09:16] LABS: HCG, SERUM QUALITATIVE NEGATIVE (NEGATIVE)
[2020-09-03] MEDS ORDERED: METHYLENE BLUE 0.5% (5MG/ML) 10 ML AMP (PROVAYBLUE) As Ordered ONE (10:03)
[2020-09-03] MEDS ORDERED: BUPIVACAINE HCL 0.25% 30ML VIAL As Ordered ONE (10:03)
--- NOTE | 2020-09-03 12:37 | ROOPDOC ---
[facility] Report Of Operation Report of Operation DATE OF PROCEDURE: 09/03/2020 PREPROCEDURE DIAGNOSES: Abnormal uterine bleeding, chronic pelvic pain. POSTPROCEDURE DIAGNOSES: Same. PROCEDURE: Robotic-assisted total laparoscopic hysterectomy, bilateral salpingectomy, cystoscopy SURGEON: Alondra Isidro D.O. FACOG PARCEL POST CARRIER: Radha Kulkarni ANESTHESIA: General endotracheal. ESTIMATED BLOOD LOSS: Approximately 100 mL. FLUIDS REPLACED: 1300 mL LR URINE OUTPUT: 100 mL COMPLICATIONS: None. FINDINGS: Normal-appearing ovaries bilaterally. Dense bladder adhesions to the lower uterine segment from prior section. Uterus was approximately 10 centimeters in greatest dimension. Cystoscopy: Bilateral ureteral orifice efflux, air bubbles seen at the dome of the bladder, indicating no leakage, no bladder injury/suture material. PREOPERATIVE ANTIBIOTIC PROPHYLAXIS: Ancef 2 g IV 1. SPECIMEN(S): Uterus w/ cervix, bilateral fallopian tubes DESCRIPTION OF PROCEDURE: The patient was counseled, consented on the respective benefits, indications, alternatives of procedure. Informed consent was obtained. She was taken to the operating room with an IV running. She was placed on the operating table in dorsal supine position. Gen. anesthesia was administered and the airway was secured without any difficulty. She was placed in the low lithotomy position. . She was prepared and draped in the normal sterile fashion. A time out was performed per protocol. A Bowling catheter was placed under sterile conditions. A sterile speculum was placed resulting in good visualization of the cervix. A single-tooth tenaculum was used to grasp the anterior lip cervix. The cervix was sequentially dilated with Ramon dilators. A V-Care uterine manipulator was placed without any difficulty. The single-tooth tenaculum was removed, as well as the speculum. A sterile glove switch was performed. Attention was turned to the abdomen. A 2mm incision was made in the umbilicus, and through this incision a Veress needle was inserted into the intraperitoneal cavity. Intraperitoneal placement was confirmed with ease of flow of normal saline, positive drop test, no return on aspiration, and an opening pressure of less than 10 mmHg upon initial insufflation. The abdomen was insufflated with 2 L of gas. The Veress needle was removed. A supraumbilical 8 mm incision was made. Through this incision, the robotic trochar/cannula was inserted into the intraperitoneal cavity under direct visualization. No incidental bleeding nor injury was noted. Patient was placed in 30 Trendelenburg. The right and left trocars/cannulas were placed on both the right and left side through 8 mm incisions, guided by laparoscopic visualization. No incidental bleeding nor injury was noted. The robot was docked in typical fashion. The instruments were inserted, guided by laparoscopic visualization. My attention was turned to the robotic console. Using the vessel sealer device, the right and left fallopian tubes were amputated. The fallopian tubes were brought through the assist-port cannula without any difficulty. The right utero-ovarian ligament and right round ligament were sequentially clamped, coagulated and transected with the vessel sealer device. The vesicouterine peritoneum was dissected with the vessel sealer device to create the bladder flap, thus mobilizing the lower uterine segment and cervix off of the bladder. The right uterine vasculature was sequentially clamped, coagulated and transected above the colpotomy cup. The left utero-ovarian ligament and left round ligament were sequentially clamped, coagulated and transected with the vessel sealer device. The remainder of the bladder flap was dissected using the vessel sealer device and blunt dissection. The left uterine vasculature was sequentially clamped, coagulated and transected above the colpotomy cup. The outline of the entire V- care colpotomy cup was able to be delineated. Excellent blanching of the uterus was noted. A circumferential colpotomy was performed using the da Enma monopolar jeny, following the contour of the cup. The amputated cervix and uterus were brought through the colpotomy into and out of the vagina, intact as one unit. The colpotomy was closed with the V-lock barbed suture in running fashion, thus creating the vaginal cuff. Excellent hemostasis was noted throughout the steps above. Amadou was placed over the vag inal cuff to ensure hemostasis. The instruments were removed from the abdomen and the robot was un-docked. The gas was released from the abdomen and the patient was taken out of Trendelenburg. I re-scrubbed, and attention was turned to the pelvis. The Bowling catheter was removed. The cystoscope was placed transurethrally into the bladder and normal saline was instilled. No bladder injury/suture material was noted. IV methylene blue had been administered by anesthesia and bilateral UO efflux was confirmed. The fluid was drained out of the bladder through the cystoscope device, then the cystoscope was removed. The vagina was copiously irrigated. A sterile digital vaginal exam revealed no significant bleeding and an intact vaginal cuff. A sterile glove switch was performed. The da Enma cannulas were removed. The skin incisions were closed with 4-0 Monocryl in subcuticular fashion. Sponge, needle and instrument counts were correct per protocol. The patient tolerated the entire procedure very well. She was transferred to the PACU in good and stable condition. Alondra Isidro DO [facility] [place] ALONDRA ISIDRO DO Sep 03, 2020 12:37
[2020-09-03] MEDS: KETOROLAC 30 MG/ML 1ML VIAL IV SCH ×2 (12:40→18:22)
[2020-09-03] MEDS ORDERED: PERCOCET 5MG/325MG TAB PO PRN (12:40)
[2020-09-03] MEDS ORDERED: OXYC1TAB23 PO (12:40)
[2020-09-03] MEDS ORDERED: ONDANSETRON 4 MG TAB PO PRN (12:40)
[2020-09-03] MEDS ORDERED: DOK1CAP7 PO (12:42)
[2020-09-03] MEDS ORDERED: fentaNYL 100 MCG/2 ML INJECTION (J3010) IV PRN (12:55)
[2020-09-03] MEDS ORDERED: MEPERIDINE INJ 25 MG/ML VIAL (J2175) IV PRN (12:55)
[2020-09-03] MEDS ORDERED: LR 1,000 ML IV SCH (12:55)
[2020-09-03] MEDS ORDERED: ONDANSETRON 4MG/2ML VIAL IV PRN (12:55)
[2020-09-03] MEDS ORDERED: oxyCODONE 5MG TAB PO PRN (12:55)
[2020-09-03] MEDS: LR 1,000 ML IV SCH ×2 (14:08→20:40)
[2020-09-03 14:15] LABS: HEMATOCRIT 24.4 % (36.0-47.0); MEAN CORPUSCULAR HEMOGLOBIN 18.8 pg (27.0-33.0); MEAN CORPUSCULAR HGB CONC 27.5 g/dl (32.0-36.5); MEAN CORPUSCULAR VOLUME 68.3 fl (80.0-96.0); PLATELET COUNT, AUTOMATED 258 10^3/uL (150-450); RED BLOOD COUNT 3.57 10^6/uL (4.00-5.40); WHITE BLOOD COUNT 6.8 10^3/uL (4.0-10.0)
[2020-09-03 14:27] LABS: HEMOGLOBIN 6.7 g/dl (12.0-15.5)
[2020-09-03] MEDS: PERCOCET 5MG/325MG TAB PO PRN (15:50)
[2020-09-03] MEDS ORDERED: DOCUSATE SODIUM 100MG CAPSULE PO SCH (21:00)
[2020-09-03 22:11] LABS: HEMATOCRIT 29.7 % (36.0-47.0); HEMOGLOBIN 8.6 g/dl (12.0-15.5); MEAN CORPUSCULAR VOLUME 72.4 fl (80.0-96.0); PLATELET COUNT, AUTOMATED 281 10^3/uL (150-450); WHITE BLOOD COUNT 8.8 10^3/uL (4.0-10.0)
[2020-09-04] MEDS: KETOROLAC 30 MG/ML 1ML VIAL IV SCH (00:16)
[2020-09-04 00:17] VITALS: BP 122/58
[2020-09-04] MEDS: PERCOCET 5MG/325MG TAB PO PRN (00:17)
== END 2020-09-04 00:30 | disposition home or self-care (01) ==
LOC: M SDC 08:36 → M MS5PR 13:45 → M SDC 09-04 00:30
PROVIDERS: ATTEND Obstetrics & Gynecology
DX: N93.9 Abnormal uterine and vaginal bleeding, unspecified (principal); N72 Inflammatory disease of cervix uteri; K21.9 Gastro-esophageal reflux disease without esophagitis; K44.9 Diaphragmatic hernia without obstruction or gangrene; Z98.84 Bariatric surgery status; F41.9 Anxiety disorder, unspecified; F32.9 Major depressive disorder, single episode, unspecified; F17.218 Nicotine dependence, cigarettes, with other nicotine-induced disorders
CPT/HCPCS: 36415; 58571; 84703; 85027; 86850; 86900; 86901; 86920; 88307; 96374; 96376; J0131; J0690; J1100; J1170; J1885; J2250; J2405; J3010; Q9968; S2900

== ENCOUNTER 2020-12-03 14:10 | Day surgery (SDC) | payer OTHER ==
[~2020-12-03] VITALS: Ht 162.6 cm; Wt 60.1 kg
[~2020-12-03 14:10] MED LIST changes: -ACETAMINOPHEN 1000MG 100ML IV BTL (OFIRMEV) (J0131 PER 10MG) As Ordered ONE; +DOK1CAP4 PO; -HYDROmorphone HCL 2 MG/ML 1ML VIAL (J1170) As Ordered ONE; -KETOROLAC 60MG 2ML VIAL As Ordered ONE; -LIDOCAINE 2% 100MG/5ML SDV (FOR ANES.) As Ordered ONE; -LR 1,000 ML IV ONE; -MIDAZOLAM INJ 2MG/2ML VIAL (J2250 PER 1MG) As Ordered ONE; -ONDANSETRON 4MG/2ML VIAL As Ordered ONE; -ROCURONIUM BROMIDE 50 MG/5 ML VIAL As Ordered ONE; -SUGAMMADEX SODIUM 500 MG/5 ML VIAL (BRIDION) As Ordered ONE; -ceFAZolin SOD 2 GM in IV 1 EA IV ONE; -dexameTHASONE 4 MG/ML 1ML VIAL (J1100 PER 1MG) As Ordered ONE; -fentaNYL 100 MCG/2 ML INJECTION (J3010) As Ordered ONE; -propofoL 200 MG/20 ML VIAL As Ordered ONE
[2020-12-03] MEDS ORDERED: FERR325T82 PO (14:36)
[2020-12-03] MEDS ORDERED: LR 1,000 ML IV SCH (15:35)
[2020-12-03 15:39] LABS: HEMATOCRIT 31.5 % (36.0-47.0); HEMOGLOBIN 9.8 g/dl (12.0-15.5); MEAN CORPUSCULAR HEMOGLOBIN 24.1 pg (27.0-33.0); MEAN CORPUSCULAR HGB CONC 31.1 g/dl (32.0-36.5); MEAN CORPUSCULAR VOLUME 77.6 fl (80.0-96.0); PLATELET COUNT, AUTOMATED 251 10^3/uL (150-450); RED BLOOD COUNT 4.06 10^6/uL (4.00-5.40); WHITE BLOOD COUNT 13.9 10^3/uL (4.0-10.0)
[2020-12-03] MEDS ORDERED: ceFAZolin SOD 2 GM in IV 1 EA IV SCH (15:50)
[2020-12-03] MEDS ORDERED: METHYLENE BLUE 0.5% (5MG/ML) 10 ML AMP (PROVAYBLUE) As Ordered ONE (16:52)
[2020-12-03] MEDS ORDERED: BUPIVACAINE HCL 0.25% 30ML VIAL As Ordered ONE (16:52)
[2020-12-03] MEDS ORDERED: MIDAZOLAM INJ 2MG/2ML VIAL (J2250 PER 1MG) As Ordered ONE (16:54)
[2020-12-03] MEDS ORDERED: fentaNYL 100 MCG/2 ML INJECTION (J3010) As Ordered ONE (16:55)
[2020-12-03] MEDS ORDERED: ROCURONIUM BROMIDE 50 MG/5 ML VIAL As Ordered ONE ×2 (16:56→18:21)
[2020-12-03] MEDS ORDERED: propofoL 200 MG/20 ML VIAL As Ordered ONE (17:36)
[2020-12-03] MEDS ORDERED: dexameTHASONE 4 MG/ML 1ML VIAL (J1100 PER 1MG) As Ordered ONE (17:37)
[2020-12-03] MEDS ORDERED: LIDOCAINE 2% 100MG/5ML SDV (FOR ANES.) As Ordered ONE (17:39)
[2020-12-03] MEDS ORDERED: ONDANSETRON 4MG/2ML VIAL As Ordered ONE (17:39)
[2020-12-03] MEDS ORDERED: METOCLOPRAMIDE INJ 10MG/2ML VIAL (J2765 PER 1) As Ordered ONE (17:40)
[2020-12-03] MEDS ORDERED: ceFAZolin 2 GM/D5W 50 ML IV BAG (J0690 PER 500MG) As Ordered ONE (17:42)
[2020-12-03] MEDS ORDERED: SUGAMMADEX SODIUM 500 MG/5 ML VIAL (BRIDION) As Ordered ONE (17:42)
[2020-12-03] MEDS ORDERED: ACETAMINOPHEN 1000MG 100ML IV BTL (OFIRMEV) (J0131 PER 10MG) As Ordered ONE (17:46)
[2020-12-03] MEDS ORDERED: HYDROmorphone HCL 2 MG/ML 1ML VIAL As Ordered ONE (18:25)
[2020-12-03] MEDS ORDERED: MORPHINE 4 MG/ML 1ML VIAL/SYRINGE (J2270) IV PRN (19:25)
[2020-12-03] MEDS ORDERED: ACETAMINOPHEN 500 MG TAB PO PRN (19:25)
[2020-12-03] MEDS ORDERED: PROMETHAZINE INJ 25 MG/ML VIAL (J2550) IV PRN (19:25)
--- NOTE | 2020-12-03 19:49 | ROOPDOC ---
[facility] Report Of Operation Report of Operation DATE OF PROCEDURE: 12/03/20 PREPROCEDURE DIAGNOSIS: Vaginal cuff dehiscence. POSTPROCEDURE DIAGNOSIS: Vaginal cuff dehiscence. PROCEDURE PERFORMED: Robotic assisted laparoscopic lysis of adhesions, vaginal cuff repair, cystoscopy. SURGEON: Alondra Isidro DO FACOG MACHINE STACKER: None ANESTHESIA: General. ESTIMATED BLOOD LOSS: Approximately 10 mL. COMPLICATIONS: None. FINDINGS: Minimal pelvic adhesions but there were omental adhesions to the vaginal cuff PROCEDURE NOTE: The patient was taken to the operating with an IV running. She was placed in the dorsal supine position. General anesthesia was administered without any difficulty. She was placed in the lithotomy position. The patient was prepared and draped in the normal sterile fashion. A time out was performed per protocol. A sponge stick was placed into the vagina and a glove switch was performed. Attention was turned to the abdomen. A supraumbilical incision was made with an 11 blade. Veress needle was placed through this incision. Intraperitoneal placement was confirmed. The abdomen was insufflated with 2 L of gas. Direct laparoscopic entry through this incision was achieved. No incidental injury to the intra-abdominal organs or incidental bleeding was noted. The anatomy was inspected with the findings noted above. Given the level of omental adhesions to the open vaginal cuff, the decision was made to proceed with robotic assisted laparoscopic lysis of adhesions. Of note, there were no intestinal adhesions to the vaginal cuff, nor was there any evisceration through the cuff. 2 additional laparoscopic port sites were placed under direct visualization without any difficulty. The robot was docked in typical fashion. I turned my attention to the robotic console. The omental adhesions were taken down with sharp dissection using the monopolar jeny without any energy, very minimal bleeding was noted throughout this process. Once the omental adhesions were freed the vaginal cuff was closed with 2-0 V-Loc suture in running fashion. The vaginal cuff was noted to be hemostatic and nonnecrotic. Amadou was placed over the vaginal cuff to ensure hemostasis. Attention was then turned to the vagina. 0 Vicryl suture was used to run an imbricating running stitch along the suture line from a vaginal approach to reinforce this closure. Excellent hemostasis was noted. Near the conclusion of the case, the Bowling was removed, and cystoscopy was performed to confirm that no suture had been placed into the bladder, and the ureters were noted to be flowing bilaterally as well after methylene blue was administered. No apparent urological injury was noted, nor any suture noted in the bladder. The vagina was copiously irrigated and excellent hemostasis of the vagina was noted. A glove switch was performed, and my attention was turned back to the abdomen. The gas was released from the abdomen. The cannulas were removed without any difficulty. The 8 mm incisions were closed with 0 Monocryl in subcuticular fashion and reinforced with Dermabond. Sponge needle and instrument counts were correct per protocol. The Bowling was kept out. The patient tolerated the entire procedure well she was transferred to the PACU in good and stable condition. ALONDRA ISIDRO DO Dec 03, 2020 19:49
[2020-12-03 20:30] VITALS: BP 104/55
[2020-12-03 21:00] VITALS: BP 101/54
[2020-12-03 21:30] VITALS: BP 98/53
[2020-12-03 21:49] VITALS: BP 90/59
[2020-12-03] MEDS: LR 1,000 ML IV SCH (22:28)
[2020-12-03] MEDS: DOCUSATE SODIUM 100MG CAPSULE PO SCH (22:28)
[2020-12-03 22:30] VITALS: BP 126/71
[2020-12-03] MEDS: ACETAMINOPH W/CODEINE #3 TAB UD PO PRN (22:45)
[2020-12-03 23:30] VITALS: BP 91/41
[2020-12-04 00:30] VITALS: BP 93/43
[2020-12-04 01:30] VITALS: BP 99/44
[2020-12-04] MEDS: ceFAZolin SOD 2 GM in IV 1 EA IV SCH ×2 (03:03→10:19)
[2020-12-04 06:00] VITALS: BP 120/60
[2020-12-04] MEDS: LR 1,000 ML IV SCH (06:35)
[2020-12-04 06:48] LABS: BASO % 0.3 % (0.0-1.0); EOS % 0.2 % (0.0-3.0); HEMATOCRIT 28.5 % (36.0-47.0); HEMOGLOBIN 8.7 g/dl (12.0-15.5); LYMPH % 11.4 % (24.0-44.0); MEAN CORPUSCULAR HGB CONC 30.5 g/dl (32.0-36.5); MEAN CORPUSCULAR VOLUME 78.5 fl (80.0-96.0); MONO # 0.5 10^3/uL (0.0-0.8); MONO % 5.4 % (2.0-8.0); NEUTROPHILS # 7.4 10^3/uL (1.5-8.5); NEUTROPHILS % 82.3 % (36.0-66.0); PLATELET COUNT, AUTOMATED 229 10^3/uL (150-450); RED BLOOD COUNT 3.63 10^6/uL (4.00-5.40)
[2020-12-04 10:00] VITALS: BP 117/57
[2020-12-04] MEDS ORDERED: ACET-716 PO (10:14)
--- NOTE | 2020-12-04 10:18 | IPNPDOC ---
Subjective Date Seen The patient was seen on 12/04/20. Subjective Chief Complaint/HPI Patient is feeling improved. Pain under control; mild discomfort. Tolerating regular diet. Ambulating and voiding spontaneously. No f/c/n/v/MENDEZ/sob/cp. Minimal vaginal bleeding/spotting. VSS/af Abd: soft,nt,nd,incisions c/d/i A/P: POD#1 s/p RA-MADIE and vaginal cuff repair. Hemodynamically stable, afebrile. -Postoperative instructions reviewed -F/u in 2 weeks -Restart dietary supplementations deena (s/p Inga en Y) -Counseled on smoking cessation -Discharge to home later this afternoon. Tc La DO Assessment /Plan Plan/VTE VTE Prophylaxis Ordered?: Yes VS, I&O, 24H, Fishbone Vital Signs/I&O Vital Signs Date Time Temp Pulse Resp B/P (MAP) Pulse Ox O2 Delivery O2 Flow Rate FiO2 12/04/20 06:00 98.6 75 20 120/60 (80) 96 Room Air 12/03/20 19:45 2.0 I&O- Last 24 Hours up to 6 AM 12/04/20 06:00 Intake Total 3135 ml Output Total 210 ml Balance 2925 ml Laboratory Data 24H LABS Laboratory Tests 2 12/03/20 11:25: Coronavirus (COVID-19)(PCR) NEGATIVE 12/03/20 15:21: Nucleated Red Blood Cells % (auto) 0.0 12/04/20 05:32: Nucleated Red Blood Cells % (auto) 0.0, Immature Granulocyte % (Auto) 0.4, Neutrophils (%) (Auto) 82.3H, Lymphocytes (%) (Auto) 11.4L, Monocytes (%) (Auto) 5.4, Eosinophils (%) (Auto) 0.2, Basophils (%) (Auto) 0.3, Neutrophils # (Auto) 7.4, Lymphocytes # (Auto) 1.0L, Monocytes # (Auto) 0.5, Eosinophils # (Auto) 0.0, Basophils # (Auto) 0.0 CBC/BMP Laboratory Tests 12/03/20 15:21 12/04/20 05:32 ALONDRA LA DO Dec 04, 2020 10:18
[2020-12-04] MEDS: DOCUSATE SODIUM 100MG CAPSULE PO SCH (10:20)
[2020-12-04] MEDS: ACETAMINOPH W/CODEINE #3 TAB UD PO PRN (10:25)
== END 2020-12-04 11:44 | disposition home or self-care (01) ==
LOC: M SDC 14:10 → M MSPAV 20:20 → M SDC 12-04 11:44
PROVIDERS: ATTEND Obstetrics & Gynecology
DX: T81.31XA Disruption of external operation (surgical) wound, not elsewhere classified, initial encounter (principal); N73.6 Female pelvic peritoneal adhesions (postinfective); K44.9 Diaphragmatic hernia without obstruction or gangrene; Z88.5 Allergy status to narcotic agent; F41.9 Anxiety disorder, unspecified; F32.9 Major depressive disorder, single episode, unspecified; F17.218 Nicotine dependence, cigarettes, with other nicotine-induced disorders; Z98.84 Bariatric surgery status
CPT/HCPCS: 36415; 57423; 85025; 85027; 86850; 86900; 86901; 96361; 96365; 96366; J0131; J0690; J1100; J1170; J2250; J2405; J2765; J3010; Q9968; S2900; U0002

== ENCOUNTER 2021-01-23 14:31 | Emergency (ER) | payer OTHER ==
[~2021-01-23] VITALS: Ht 162.6 cm; Wt 60.9 kg
[~2021-01-23 14:31] MED LIST changes: +ACET-716 PO; +FERR325T82 PO
[2021-01-23 14:44] VITALS: O2SAT 100
[2021-01-23] MEDS ORDERED: FERR325T3 (14:44)
[2021-01-23] MEDS ORDERED: NS 1,000 ML IV ONE (17:45)
[2021-01-23] MEDS ORDERED: ONDANSETRON 4MG/2ML VIAL IV ONE (17:45)
[2021-01-23] MEDS ORDERED: KETOROLAC 30 MG/ML 1ML VIAL IV ONE (17:45)
[2021-01-23] MEDS ORDERED: diphenhydrAMINE 50MG/ML VIAL (J1200) IV ONE (17:50)
[2021-01-23 19:36] LABS: BASO % 0.5 % (0.0-1.0); EOS # 0.1 10^3/uL (0.0-0.5); EOS % 3.3 % (0.0-3.0); HEMATOCRIT 32.9 % (36.0-47.0); HEMOGLOBIN 9.9 g/dl (12.0-15.5); LYMPH # 1.9 10^3/uL (1.5-5.0); LYMPH % 43.8 % (24.0-44.0); MEAN CORPUSCULAR HEMOGLOBIN 23.7 pg (27.0-33.0); MEAN CORPUSCULAR HGB CONC 30.1 g/dl (32.0-36.5); MEAN CORPUSCULAR VOLUME 78.7 fl (80.0-96.0); MONO # 0.4 10^3/uL (0.0-0.8); NEUTROPHILS # 1.8 10^3/uL (1.5-8.5); NEUTROPHILS % 43.2 % (36.0-66.0); PLATELET COUNT, AUTOMATED 203 10^3/uL (150-450); RED BLOOD COUNT 4.18 10^6/uL (4.00-5.40); WHITE BLOOD COUNT 4.2 10^3/uL (4.0-10.0)
[2021-01-23 19:57] LABS: INR 0.96; PROTHROMBIN TIME 13.2 SECONDS (12.7-14.5)
[2021-01-23 19:58] LABS: PARTIAL THROMBOPLASTIN TIME 27.1 SECONDS (25.9-37.0)
[2021-01-23 20:01] LABS: D-DIMER QUANT 875.41 ng/ml (<500)
[2021-01-23 20:08] LABS: CK-MB VALUE MASS < 1.0 NG/ML (<3.6); CPK CREATINE PHOSPHOKINASE 38 U/L (26-192); MB/CK RELATIVE INDEX 2.63 (< OR =4); TROPONIN I < 0.02 NG/ML (< 0.10)
[2021-01-23 20:26] LABS: ALBUMIN 3.1 GM/DL (3.2-5.2); ALT/SGPT 18 U/L (12-78); BILIRUBIN,TOTAL < 0.1 MG/DL (0.2-1.0); BLOOD UREA NITROGEN 16 MG/DL (7-18); CALCIUM LEVEL 8.2 MG/DL (8.5-10.1); CARBON DIOXIDE LEVEL 25 MEQ/L (21-32); CHLORIDE LEVEL 113 MEQ/L (98-107); CREATININE FOR GFR 0.66 MG/DL (0.55-1.30); FERRITIN 7 NG/ML (8-252); GLOMERULAR FILTRATION RATE > 60.0 (>60); GLUCOSE, FASTING 74 MG/DL (70-100); LDH LACTATE DEHYDROGENASE 200 U/L (84-246); MAGNESIUM LEVEL 2.2 MG/DL (1.8-2.4); POTASSIUM SERUM 4.6 MEQ/L (3.5-5.1); SODIUM LEVEL 142 MEQ/L (136-145); TOTAL PROTEIN 6.4 GM/DL (6.4-8.2)
[2021-01-23] MEDS ORDERED: ACETAMINOPHEN 325 MG TAB PO ONE (20:35)
--- NOTE | 2021-01-23 20:40 | ECGEPIP ---
[facility] - ED Test Date: 2021-01-23 Pat Name: ANGEL MEANS Department: Room: - Gender: Female Chicken Hanger: JACOBY : 1990 Requested By: POONAM Ashton PA-C Order Number: [id number] Reading MD: Reba Ramírez Measurements Intervals Lititz Rate: 51 P: -16 LA: 126 QRS: -8 QRSD: 84 T: 21 QT: 428 QTc: 394 Interpretive Statements Sinus bradycardia No prior Electronically Signed on 01-23-2021 20:40:21 EST by Reba Ramírez
[2021-01-23] MEDS ORDERED: ISOVUE-370 76% 100ML VIAL As Ordered ONE (21:12)
[2021-01-23 21:14] VITALS: BP 111/73
--- NOTE | 2021-01-23 21:57 | REPVR ---
PROCEDURE INFORMATION: Exam: CTA Chest With Contrast Exam date and time: 01/23/2021 9:04 PM Age: 30 years old Clinical indication: Chest wall pain; Additional info: Sob/young/tachycardia/elevated dimer/covid TECHNIQUE: Imaging protocol: Computed tomographic angiography of the chest with contrast. 3D rendering (Not supervised by radiologist): MIP and/or 3D reconstructed images were created by the technologist. Radiation optimization: All CT scans at this facility use at least one of these dose optimization techniques: automated exposure control; mA and/or kV adjustment per patient size (includes targeted exams where dose is matched to clinical indication); or iterative reconstruction. Contrast material: ISO 370; Contrast volume: 75 ml; Contrast route: INTRAVENOUS (IV); COMPARISON: CR Chest, 2 view PA, Lat 05/15/2019 8:43 PM FINDINGS: Pulmonary arteries: The main pulmonary artery measures 24 mm. No pulmonary embolism is identified. Aorta: The ascending thoracic aorta measures 27 mm. Lungs: Unremarkable. No consolidation. No masses. Pleural spaces: Unremarkable. No pneumothorax. No pleural effusion. Heart: Unremarkable. No cardiomegaly. No pericardial effusion. Lymph nodes: Unremarkable. No enlarged lymph nodes. Stomach and bowel: Status post gastric bypass. Bones/joints: Unremarkable. No acute fracture. Soft tissues: There is soft tissue conforming to the anterior mediastinum consistent with residual thymic tissue. IMPRESSION: 1. Status post gastric bypass. 2. Otherwise negative CTA chest. No pulmonary embolism is identified. Electronically signed by: Timo Nguyễn On 01/23/2021 21:56:40 PM
[2021-01-23] MEDS ORDERED: ZOFR4TAB16 PO (22:12)
== END 2021-01-23 22:42 | disposition home or self-care (01) ==
LOC: M ED 14:31
DX: U07.1 COVID-19 (principal); R00.1 Bradycardia, unspecified; R51.9 Headache, unspecified; R11.0 Nausea; M79.10 Myalgia, unspecified site; Z98.84 Bariatric surgery status; Z88.5 Allergy status to narcotic agent; Z79.899 Other long term (current) drug therapy
CPT/HCPCS: 36415; 71275; 80053; 82550; 82553; 82728; 83615; 83735; 84145; 85025; 85379; 85384; 85610; 85730; 93005; 96361; 96374; 96375; 99284; J1200; J1885; J2405; Q9967

== ENCOUNTER → 2021-09-27 | Outpatient (REF) | payer OTHER ==
[~2021-09-27] MED LIST changes: +FERR325T3; -OMEP-221; +OMEP40CA5; +ZOFR4TAB16 PO
== END ==
LOC: M SFHCWAGY 13:05
PROVIDERS: ATTEND Obstetrics & Gynecology
DX: Z12.72 Encounter for screening for malignant neoplasm of vagina (principal)

== ENCOUNTER 2021-11-23 09:25 | Emergency (ER) | payer OTHER ==
[~2021-11-23] VITALS: Ht 162.6 cm; Wt 63.2 kg
[2021-11-23] MEDS ORDERED: QUET100T2 (09:36)
[2021-11-23] MEDS ORDERED: NORCO, ANEXSIA 5/325MG TABLET (HYDROcodone/ACETAMINOPHEN) PO ONE (10:00)
[2021-11-23] MEDS ORDERED: CYCL-707 PO (10:48)
[2021-11-23 11:03] VITALS: BP 104/66
== END 2021-11-23 11:30 | disposition home or self-care (01) ==
LOC: M ED 09:25
DX: S13.4XXA Sprain of ligaments of cervical spine, initial encounter (principal); S80.12XA Contusion of left lower leg, initial encounter; I10 Essential (primary) hypertension; F41.9 Anxiety disorder, unspecified; F32.A Depression, unspecified; F17.200 Nicotine dependence, unspecified, uncomplicated; F15.10 Other stimulant abuse, uncomplicated; Z98.84 Bariatric surgery status; V49.40XA Driver injured in collision with unspecified motor vehicles in traffic accident, initial encounter; Z88.5 Allergy status to narcotic agent; Z79.899 Other long term (current) drug therapy; Y92.9 Unspecified place or not applicable; Y93.9 Activity, unspecified; Y99.9 Unspecified external cause status

== ENCOUNTER → 2021-12-01 | Outpatient (CLI) | payer OTHER ==
[~2021-12-01] MED LIST changes: +CYCL-707 PO; +QUET100T2
== END ==
LOC: M WUC 14:51
PROVIDERS: ATTEND Nurse Practitioner Family
DX: M54.2 Cervicalgia (principal)

== ENCOUNTER 2021-12-29 11:22 | Outpatient (RCR) | payer OTHER | END 2022-01-02 23:59 | disposition home or self-care (01) | LOC: M PT 11:22 | PROVIDERS: ATTEND Nurse Practitioner Family | DX: M54.2 Cervicalgia (principal) ==

== ENCOUNTER 2022-01-05 16:00 | Outpatient (RCR) | payer OTHER | END 2022-02-01 | LOC: M PT 16:00 | PROVIDERS: ATTEND Nurse Practitioner Family | DX: M54.2 Cervicalgia (principal) ==

== ENCOUNTER 2022-03-05 22:35 | Emergency (ER) | payer OTHER ==
[~2022-03-05] VITALS: Ht 162.6 cm; Wt 66.6 kg
[2022-03-06] MEDS ORDERED: NORCO, ANEXSIA 5/325MG TABLET (HYDROcodone/ACETAMINOPHEN) PO ONE (01:50)
[2022-03-06 04:15] VITALS: BP 100/59
[2022-03-06] MEDS ORDERED: NORCO 5/325MG TABLET (HOME DOSE PACK) PO ONE (04:35)
== END 2022-03-06 04:48 | disposition home or self-care (01) ==
LOC: M ED 22:35
DX: S30.0XXA Contusion of lower back and pelvis, initial encounter (principal); W10.9XXA Fall (on) (from) unspecified stairs and steps, initial encounter; Z88.5 Allergy status to narcotic agent; Z79.899 Other long term (current) drug therapy

== ENCOUNTER → 2022-06-15 | Outpatient (REF) | payer OTHER ==
[2022-06-15 17:33] LABS: RSV AMPLIFICATION NEGATIVE (NEGATIVE)
== END ==
LOC: M LAB REF 16:12
PROVIDERS: ATTEND Physician Assistant
DX: B34.9 Viral infection, unspecified (principal)

== ENCOUNTER → 2023-03-27 | Outpatient (CLI) | payer OTHER ==
[2023-03-27 13:36] LABS: BASO % 0.8 % (0.0-1.0); EOS # 0.2 10^3/uL (0.0-0.5); HEMATOCRIT 40.3 % (36.0-47.0); HEMOGLOBIN 13.1 g/dl (12.0-15.5); LYMPH # 1.7 10^3/uL (1.5-5.0); LYMPH % 36.1 % (24.0-44.0); MEAN CORPUSCULAR HGB CONC 32.5 g/dl (32.0-36.5); MEAN CORPUSCULAR VOLUME 95.3 fl (80.0-96.0); MONO # 0.5 10^3/uL (0.0-0.8); MONO % 10.1 % (2.0-8.0); NEUTROPHILS # 2.3 10^3/uL (1.5-8.5); NEUTROPHILS % 48.8 % (36.0-66.0); PLATELET COUNT, AUTOMATED 295 10^3/uL (150-450); RED BLOOD COUNT 4.23 10^6/uL (4.00-5.40); WHITE BLOOD COUNT 4.8 10^3/uL (4.0-10.0)
[2023-03-27 13:43] LABS: ERYTHROCYTE SEDIMENTATION RATE 37 mm/hr (0-20)
[2023-03-27 14:11] LABS: ALBUMIN 3.3 G/DL (3.2-5.2); ALKALINE PHOSPHATASE 113 U/L (46-116); ALT/SGPT 47 U/L (7.0-40); AST/SGOT 17 U/L (<34); BILIRUBIN,TOTAL < 0.2 MG/DL (0.3-1.2); BLOOD UREA NITROGEN 9 MG/DL (9-23); CALCIUM LEVEL 9.1 MG/DL (8.5-10.1); CARBON DIOXIDE LEVEL 30 MMOL/L (20-31); CHLORIDE LEVEL 106 MMOL/L (98-107); CREATININE FOR GFR 0.64 MG/DL (0.55-1.30); FOLATE 10.8 NG/ML (>5.4); GLOMERULAR FILTRATION RATE > 60.0 (>60); GLUCOSE, FASTING 57 MG/DL (60-100); RHEUMATOID FACTOR QUANT < 3.5 IU/ML (<14); SODIUM LEVEL 139 MMOL/L (136-145); TOTAL PROTEIN 6.8 G/DL (5.7-8.2)
[2023-03-27 14:14] LABS: VITAMIN B12 LEVEL 443 PG/ML (211-911)
[2023-03-27 14:16] LABS: HEMOGLOBIN A1c 4.9 % (4.0-6.0)
== END ==
LOC: M PLALAB 10:59
PROVIDERS: ATTEND Psychiatry & Neurology Neurology
DX: E11.42 Type 2 diabetes mellitus with diabetic polyneuropathy (principal); E53.8 Deficiency of other specified B group vitamins

== ENCOUNTER → 2023-10-20 | Outpatient (REF) | payer OTHER | LOC: M LAB REF 22:34 | PROVIDERS: ATTEND Physician Assistant Medical | DX: J02.9 Acute pharyngitis, unspecified (principal); B34.9 Viral infection, unspecified ==

== ENCOUNTER → 2023-12-04 | Outpatient (REF) | payer OTHER | LOC: M PLALAB 11:53 | PROVIDERS: ATTEND Nurse Practitioner Family | DX: Z12.72 Encounter for screening for malignant neoplasm of vagina (principal) ==

== ENCOUNTER → 2023-12-04 | Outpatient (CLI) | payer OTHER ==
[2023-12-04 15:48] LABS: LUTEINIZING HORMONE 5.7 mIU/ML
[2023-12-04 15:49] LABS: ESTRADIOL 216.8 PG/ML; FOLLICLE STIMULATING HORMONE 4.8 mIU/ML; PROGESTERONE 0.27 NG/ML; PROLACTIN 4.54 NG/ML
== END ==
LOC: M PLALAB 12:23
PROVIDERS: ATTEND Nurse Practitioner Family
DX: N95.9 Unspecified menopausal and perimenopausal disorder (principal)

== ENCOUNTER → 2024-02-05 | Outpatient (REF) | payer OTHER ==
[2024-02-05 18:17] LABS: PERCENT SATURATION 16.4 % (13.2-45.0)
[2024-02-05 18:22] LABS: FERRITIN 14.6 NG/ML (7.3-270.7)
[2024-02-05 18:24] LABS: FOLATE 12.1 NG/ML (>5.4)
== END ==
LOC: M LAB REF 16:44
PROVIDERS: ATTEND Physician Assistant
DX: Z98.84 Bariatric surgery status (principal); D64.9 Anemia, unspecified